=== PATIENT | male | born 1970 | race Caucasian/White ===

== ENCOUNTER 2019-01-07 16:43 | Emergency (ER) | payer SELFPAY ==
[~2019-01-07] VITALS: Ht 198.1 cm; Wt 136.1 kg
--- NOTE | 2019-01-07 17:47 | RAD ---
CT head and cervical spine without contrast History: Syncope, head injury, loss of consciousness Technique: Noncontrast CT imaging was performed of the head and cervical spine. Multiplanar reconstruction images are submitted. Exposure: One or more of the following individualized dose reduction techniques were utilized for this examination: 1. Automated exposure control 2. Adjustment of the mA and/or kV according to patient size 3. Use of iterative reconstruction technique. Head CT Comparison: None Findings: No acute extra-axial or parenchymal hemorrhage is identified. There is no significant intra-axial mass effect, midline shift, or extra-axial fluid collection. The shay-white differentiation of the major vascular territories is preserved. The ventricles, sulci, and cisterns are within normal limits in size and configuration. Mastoid air cells are aerated. There is patchy mild bilateral ethmoid air cell mucosal thickening. There is mucous retention cyst of the inferior left maxillary sinus. There is no significant focal calvarial abnormality. There is bilateral proptosis. Impression: 1. No acute intracranial abnormality is identified. 2. There is bilateral proptosis. Cervical spine CT Comparison: None Findings: No acute cervical spine fracture is identified. Vertebral body stature is overall maintained. There is very mild grade 1 anterior spondylolisthesis C4-5. There is mild to moderate degenerative disc disease C5-6, minimally at C4-5 and C6-7. There is mild spondylosis greatest C5-6. There is probable borderline central canal stenosis C4-5 through C6-7. Atlanto-axial distance is within normal limits. There is appropriate alignment of lateral masses of C1 relative to C2. Occipital condylar-C1 relationship is maintained. There is mild reversal of the lordotic curvature centered near C3-4. There is multilevel facet degenerative change. There is a larger osteophyte along the anterior right facet articulation at C3-C4 contributing to moderate narrowing of the right neural foramen. There is mild narrowing of the right C5-6 neural foramen. Impression: 1. No acute cervical spine fracture is identified. 2. Larger facet osteophyte at C3-4 results in moderate narrowing of the right neural foramen. 3. There is degenerative disc disease greatest at C5-6 and to lesser degree at C4-5 and C6-7 with spondylosis at the same levels. Electronically signed by: Mukul Hernandez MD (01/07/2019 5:44 PM) [facility]
[2019-01-07 17:50] LABS: BASO % 1 % (0-3); EOS # 0.3 x10^3/uL (0.0-0.7); EOS % 6 % (0-3); HEMATOCRIT 46.9 % (39.0-53.0); LYMPH # 0.9 x10^3/uL (1.0-4.8); LYMPH % 21 % (24-48); MEAN CORPUSCULAR HEMOGLOBIN 32 pg (25-35); MEAN CORPUSCULAR HGB CONC 34 g/dL (31-37); MEAN CORPUSCULAR VOLUME 95 fL (79-100); MONO # 0.8 x10^3/uL (0.0-1.1); MONO % 18 % (0-9); NEUT # 2.3 x10^3uL (1.8-7.7); NEUT % 53 % (31-73); PLATELET COUNT 158 x10^3/uL (140-400); RED BLOOD COUNT 4.95 x10^6/uL (4.30-5.70); RED CELL DISTRIBUTION WIDTH 12.9 % (11.5-14.5); WHITE BLOOD COUNT 4.2 x10^3/uL (4.0-11.0)
--- NOTE | 2019-01-07 18:02 | RAD ---
AP chest radiograph 01/07/2019 CLINICAL HISTORY: Cough and congestion. Two AP digital radiographs of the chest were obtained. No previous studies are available for comparison. The cardiac and mediastinal silhouettes are within normal limits in size and configuration. No acute pulmonary infiltrate is seen. No pleural effusion or pneumothorax is noted. Degenerative changes are seen involving the thoracic spine. IMPRESSION: No acute abnormality is seen. Electronically signed by: Markus Ritchie MD (01/07/2019 5:59 PM) [facility]
[2019-01-07 18:08] LABS: ALBUMIN 3.7 g/dL (3.4-5.0); ALBUMIN/GLOBULIN RATIO 1.2 (1.0-1.7); CALCIUM 8.9 mg/dL (8.5-10.1); GFR 79.1; POTASSIUM 4.2 mmol/L (3.5-5.1); TOTAL BILIRUBIN 0.5 mg/dL (0.2-1.0); TOTAL PROTEIN 6.8 g/dL (6.4-8.2)
--- NOTE | 2019-01-07 18:16 | PHYS DOC ---
Past History Past Medical History: Other (back pain, PTSD, anxiety, depression and) (ALYSA AGUILAR MD) Smoking: Cigarettes Alcohol Use: None Drug Use: None (ALYSA AGUILAR MD) Adult General Chief Complaint Chief Complaint: MECHANICAL FALL HPI HPI 48-year-old male presents to the emergency Department after syncopal episode. Patient describes shortness of breath, cough, congestion �2 days. Denies any nausea, vomiting, chest pain. Unknown amount of time patient was unconscious, unknown if he hit his head. Reportedly approximately 10 seconds. EMS was called and patient was transported to the emergency department. He does describe some dizziness. (ALYSA AGUILAR MD) Review of Systems Review of Systems Constitutional: Denies fever or chills [] Eyes: Denies change in visual acuity, redness, or eye pain [] HENT: Congestion Respiratory: Cough, shortness of breath. Cardiovascular: No additional information not addressed in HPI [] GI: Denies abdominal pain, nausea, vomiting, bloody stools or diarrhea [] Musculoskeletal: Chronic pain Neurologic: Denies headache, focal weakness or sensory changes [] All other systems were reviewed and found to be within normal limits, except as documented in this note. (ALYSA AGUILAR MD) Physical Exam Physical Exam Constitutional: Well developed, well nourished, no acute distress, non-toxic appearance. [] HENT: Normocephalic, atraumatic, bilateral external ears normal, oropharynx moist, no oral exudates, nose normal. [] Eyes: PERRLA, EOMI, conjunctiva normal, no discharge. [] Neck: Normal range of motion, no tenderness, supple, no stridor. [] Cardiovascular:Heart rate regular rhythm, no murmur [] Lungs & Thorax: Decreased breath sounds Abdomen: Bowel sounds normal, soft, no tenderness, no masses, no pulsatile masses. [] Skin: Warm, dry, no erythema, no rash. [] Extremities: No tenderness, no cyanosis, no clubbing, ROM intact, no edema. [] Neurologic: Alert and oriented X 3, no focal deficits noted. [] Psychologic: Affect normal, judgement normal, mood normal. [] (ALYSA AGUILAR MD) Current Patient Data Vital Signs Temperature (Fahrenheit): * 98.0 degrees F (97.6-99.5) Patient Temperature * 98.0 degrees F (97.5-99.5) Temperature Source * Oral Blood Pressure Systolic * 144 mm Hg (100-140) H Blood Pressure Diastolic * 90 mm Hg (60-100) Blood Pressure Mean * 108 mm Hg Blood Pressure Location * Right Arm Blood Pressure Source * Automatic Cuff Pulse Rate * 73 beats per minute (60-90) Pulse Assessment Method * Monitor Respiratory Rate * 18 breaths per minute (12-24) Oxygen Delivery Method * Room Air Bedside Pulse Oximetry * 94 % Lab Results Laboratory Tests Test 01/07/19 17:35 White Blood Count 4.2 x10^3/uL (4.0-11.0) Red Blood Count 4.95 x10^6/uL (4.30-5.70) Hemoglobin 16.0 g/dL (13.0-17.5) Hematocrit 46.9 % (39.0-53.0) Mean Corpuscular Volume 95 fL (79-100) Mean Corpuscular Hemoglobin 32 pg (25-35) Mean Corpuscular Hemoglobin Concent 34 g/dL (31-37) Red Cell Distribution Width 12.9 % (11.5-14.5) Platelet Count 158 x10^3/uL (140-400) Neutrophils (%) (Auto) 53 % (31-73) Lymphocytes (%) (Auto) 21 % (24-48) L Monocytes (%) (Auto) 18 % (0-9) H Eosinophils (%) (Auto) 6 % (0-3) H Basophils (%) (Auto) 1 % (0-3) Neutrophils # (Auto) 2.3 x10^3uL (1.8-7.7) Lymphocytes # (Auto) 0.9 x10^3/uL (1.0-4.8) L Monocytes # (Auto) 0.8 x10^3/uL (0.0-1.1) Eosinophils # (Auto) 0.3 x10^3/uL (0.0-0.7) Basophils # (Auto) 0.0 x10^3/uL (0.0-0.2) D-Dimer (Lauren) 0.54 mg/L (0.00-0.50) H Sodium Level 141 mmol/L (136-145) Potassium Level 4.2 mmol/L (3.5-5.1) Chloride Level 106 mmol/L (98-107) Carbon Dioxide Level 29 mmol/L (21-32) Anion Gap 6 (6-14) Blood Urea Nitrogen 11 mg/dL (8-26) Creatinine 1.0 mg/dL (0.7-1.3) Estimated GFR (Cockcroft-Gault) 79.1 BUN/Creatinine Ratio 11 (6-20) Glucose Level 107 mg/dL (70-99) H Calcium Level 8.9 mg/dL (8.5-10.1) Total Bilirubin 0.5 mg/dL (0.2-1.0) Aspartate Amino Transferase (AST) 26 U/L (15-37) Alanine Aminotransferase (ALT) 51 U/L (16-63) Alkaline Phosphatase 78 U/L (46-116) Total Protein 6.8 g/dL (6.4-8.2) Albumin 3.7 g/dL (3.4-5.0) Albumin/Globulin Ratio 1.2 (1.0-1.7) (ALYSA AGUILAR MD) Lab Results Laboratory Tests Test 01/07/19 17:35 White Blood Count 4.2 x10^3/uL Red Blood Count 4.95 x10^6/uL Hemoglobin 16.0 g/dL Hematocrit 46.9 % Mean Corpuscular Volume 95 fL Mean Corpuscular Hemoglobin 32 pg Mean Corpuscular Hemoglobin Concent 34 g/dL Red Cell Distribution Width 12.9 % Platelet Count 158 x10^3/uL Neutrophils (%) (Auto) 53 % Lymphocytes (%) (Auto) 21 % Monocytes (%) (Auto) 18 % Eosinophils (%) (Auto) 6 % Basophils (%) (Auto) 1 % Neutrophils # (Auto) 2.3 x10^3uL Lymphocytes # (Auto) 0.9 x10^3/uL Monocytes # (Auto) 0.8 x10^3/uL Eosinophils # (Auto) 0.3 x10^3/uL Basophils # (Auto) 0.0 x10^3/uL D-Dimer (Lauren) 0.54 mg/L Sodium Level 141 mmol/L Potassium Level 4.2 mmol/L Chloride Level 106 mmol/L Carbon Dioxide Level 29 mmol/L Anion Gap 6 Blood Urea Nitrogen 11 mg/dL Creatinine 1.0 mg/dL Estimated GFR (Cockcroft-Gault) 79.1 BUN/Creatinine Ratio 11 Glucose Level 107 mg/dL Calcium Level 8.9 mg/dL Total Bilirubin 0.5 mg/dL Aspartate Amino Transf (AST/SGOT) 26 U/L Alanine Aminotransferase (ALT/SGPT) 51 U/L Alkaline Phosphatase 78 U/L Troponin I Quantitative < 0.017 ng/mL Total Protein 6.8 g/dL Albumin 3.7 g/dL Albumin/Globulin Ratio 1.2 Current Medications Medications (Trade) Dose Ordered Sig/Sakina Route PRN Reason Start Time Stop Time Status Last Admin Dose Admin Iohexol (Omnipaque 350 Mg/ml) 100 ml 1X ONCE IV 01/07/19 19:00 01/07/19 19:01 DC 01/07/19 19:02 (DORIS CANCHOLA MD) EKG EKG [] (ALYSA AGUILAR MD) EKG Normal sinus rhythm with a normal rate, normal axis, normal intervals, there are no acute ischemic ST/T changes. (DORIS CANCHOLA MD) Radiology/Procedures Radiology/[place] [address] IMAGING REPORT Signed PATIENT: HERSON ALFREDO ACCOUNT: [id number] : 1970 LOCATION: ER AGE: 48 SEX: M EXAM STATUS: PRE ER ORD. PHYSICIAN: ALYSA AGUILAR MD REASON: syncope, head injury, LOC PROCEDURE: CT HEAD AND CERVICAL SPINE WO CT head and cervical spine without contrast History: Syncope, head injury, loss of consciousness Technique: Noncontrast CT imaging was performed of the head and cervical spine. Multiplanar reconstruction images are submitted. Exposure: One or more of the following individualized dose reduction techniques were utilized for this examination: 1. Automated exposure control 2. Adjustment of the mA and/or kV according to patient size 3. Use of iterative reconstruction technique. Head CT Comparison: None Findings: No acute extra-axial or parenchymal hemorrhage is identified. There is no significant intra-axial mass effect, midline shift, or extra-axial fluid collection. The shay-white differentiation of the major vascular territories is preserved. The ventricles, sulci, and cisterns are within normal limits in size and configuration. Mastoid air cells are aerated. There is patchy mild bilateral ethmoid air cell mucosal thickening. There is mucous retention cyst of the inferior left maxillary sinus. There is no significant focal calvarial abnormality. There is bilateral proptosis. Impression: 1. No acute intracranial abnormality is identified. 2. There is bilateral proptosis. Cervical spine CT Comparison: None Findings: No acute cervical spine fracture is identified. Vertebral body stature is overall maintained. There is very mild grade 1 anterior spondylolisthesis C4-5. There is mild to moderate degenerative disc disease C5-6, minimally at C4-5 and C6-7. There is mild spondylosis greatest C5-6. There is probable borderline central canal stenosis C4-5 through C6-7. Atlanto-axial distance is within normal limits. There is appropriate alignment of lateral masses of C1 relative to C2. Occipital condylar-C1 relationship is maintained. There is mild reversal of the lordotic curvature centered near C3-4. There is multilevel facet degenerative change. There is a larger osteophyte along the anterior right facet articulation at C3-C4 contributing to moderate narrowing of the right neural foramen. There is mild narrowing of the right C5-6 neural foramen. Impression: 1. No acute cervical spine fracture is identified. 2. Larger facet osteophyte at C3-4 results in moderate narrowing of the right neural foramen. 3. There is degenerative disc disease greatest at C5-6 and to lesser degree at C4-5 and C6-7 with spondylosis at the same levels. Electronically signed by: Josee Powers MD (01/07/2019 5:44 PM) [facility] DICTATED AND SIGNED BY: JOSEE POWERS MD DATE: 01/07/19 1741 CC: ALYSA AGUILAR MD ~ [address] [address] IMAGING REPORT Signed PATIENT: HERSON ALFREDO ACCOUNT: [id number] : 1970 LOCATION: ER AGE: 48 SEX: M EXAM STATUS: PRE ER ORD. PHYSICIAN: ALYSA AGUILAR MD REASON: cough/congestion PROCEDURE: CHEST AP ONLY AP chest radiograph 01/07/2019 CLINICAL HISTORY: Cough and congestion. Two AP digital radiographs of the chest were obtained. No previous studies are available for comparison. The cardiac and mediastinal silhouettes are within normal limits in size and configuration. No acute pulmonary infiltrate is seen. No pleural effusion or pneumothorax is noted. Degenerative changes are seen involving the thoracic spine. IMPRESSION: No acute abnormality is seen. Electronically signed by: Gema Ritchie MD (01/07/2019 5:59 PM) [facility] DICTATED AND SIGNED BY: GEMA RITCHIE MD DATE: 01/07/19 3970 CC: ALYSA AGUILAR MD ~ (ALYSA AGUILAR MD) Radiology/Procedures PROCEDURE: CT ANGIOGRAPHY CHEST CTA scan of the Chest with Contrast (Pulmonary Embolism protocol) 01/07/2019 Clinical History: Syncope. Elevated d-dimer. Technique: After the intravenous administration of 100 cc of Omnipaque 350, contiguous, 0.625 mm axial sections were obtained through the chest. 2 mm axial and 3D MIP coronal and sagittal reconstructed images were obtained. One or more of the following individualized dose reduction techniques were utilized for this study: 1. Automated exposure control. 2. Adjustment of the mA and/or kV according to patient size. 3. Use of iterative reconstruction technique. Findings: Comparison is made to an AP chest radiograph performed earlier today. No filling defect is seen within the major branches of either pulmonary artery. There is no CT evidence of pulmonary embolism. The heart is borderline enlarged. The thoracic aorta is tortuous but tapers normally. Enlarged hilar and mediastinal lymph nodes are seen. These measure 1 to 3.1 cm in size.. Minimal dependent subsegmental atelectasis is seen involving both lungs. No area of consolidation, pleural effusion or pneumothorax is seen. Images through the upper abdomen demonstrate decreased attenuation of the liver parenchyma consistent with fatty infiltration. Degenerative changes are seen involving the thoracic spine. Impression: There is no CT evidence of pulmonary embolism. (DORIS CANCHOLA MD) Course & Med Decision Making Course & Med Decision Making Pertinent Labs and Imaging studies reviewed. (See chart for details) []48-year-old male presents to the emergency Department after syncopal episode. Patient describes shortness of breath, cough, congestion �2 days. Denies any nausea, vomiting, chest pain. Unknown amount of time patient was unconscious, unknown if he hit his head. Reportedly approximately 10 seconds. EMS was called and patient was transported to the emergency department. He does describe some dizziness. Labs/Imaging reviewed. CXR without acute process. Ddimer mildly elevated, given syncope and SOB, plan for CTA. If negative, will plan for dc and rx for bronchitis given continued coug/congestion. CTA pending - discussed with Dr. Canchola. If CTA negative will plan discharge. (ALYSA AGUILAR MD) Course & Med Decision Making 8:00 PM: Patient presented to the emergency department after syncopal episode, at his [place]. He denies any pain at this time. He has had some nasal congestion and a nonproductive cough, but is not short of breath at this time. He is ambulatory in the emergency department with a stable gait. His EKG, lab, and numerous imaging tests are all unremarkable. I discussed the uncertain etiology of this syncopal episode and we discussed overnight observation in the hospital, but the patient feels well and would like to go home. I discussed importance of close follow-up and return precautions in detail. (DORIS CANCHOLA MD) Dragon Disclaimer Dragon Disclaimer This electronic medical record was generated, in whole or in part, using a voice recognition dictation system. (ALYSA AGUILAR MD) Departure Departure: Impression: Primary Impression: Syncope and collapse Disposition: HOME, SELF-CARE Condition: STABLE Patient Instructions: Syncope, [id number] Additional Instructions: Tylenol/Motrin as needed Doxycycline for congestion/cough Imaging reviewed, no evidence of head bleed or neck fracture Scripts Doxycycline Monohydrate (DOXYCYCLINE MONOHYDRATE) 100 Mg Capsule 1 CAP PO BID for sinus infection, #14 CAP Prov: ALYSA AGUILAR MD 01/07/19 ALYSA AGUILAR MD Jan 07, 2019 18:16 DORIS CANCHOLA MD Jan 07, 2019 19:20
[2019-01-07] MEDS ORDERED: DOXY100C14 PO (18:25)
[2019-01-07] MEDS ORDERED: IOHEXOL 350 MG/ML 100 ML VIAL. IV ONE (19:00)
--- NOTE | 2019-01-07 19:39 | RAD ---
CTA scan of the Chest with Contrast (Pulmonary Embolism protocol) 01/07/2019 Clinical History: Syncope. Elevated d-dimer. Technique: After the intravenous administration of 100 cc of Omnipaque 350, contiguous, 0.625 mm axial sections were obtained through the chest. 2 mm axial and 3D MIP coronal and sagittal reconstructed images were obtained. One or more of the following individualized dose reduction techniques were utilized for this study: 1. Automated exposure control. 2. Adjustment of the mA and/or kV according to patient size. 3. Use of iterative reconstruction technique. Findings: Comparison is made to an AP chest radiograph performed earlier today. No filling defect is seen within the major branches of either pulmonary artery. There is no CT evidence of pulmonary embolism. The heart is borderline enlarged. The thoracic aorta is tortuous but tapers normally. Enlarged hilar and mediastinal lymph nodes are seen. These measure 1 to 3.1 cm in size.. Minimal dependent subsegmental atelectasis is seen involving both lungs. No area of consolidation, pleural effusion or pneumothorax is seen. Images through the upper abdomen demonstrate decreased attenuation of the liver parenchyma consistent with fatty infiltration. Degenerative changes are seen involving the thoracic spine. Impression: There is no CT evidence of pulmonary embolism. Electronically signed by: Markus Ritchie MD (01/07/2019 7:36 PM) [facility]
[2019-01-07 20:09] VITALS: BP 158/92
--- NOTE | 2019-01-08 12:44 | EKG ---
[address] [address] Test Date: 2019-01-07 Test Time: 19:58:34 Pat Name: HERSON ALFREDO Department: Room: Gender: M Volunteer Services Assistant: : 1970 Requested By: DORIS NOLEN Order Number: [id number] Reading MD: Measurements Intervals [place] Rate: 62 P: 45 [place]: 158 QRS: 23 QRSD: 102 T: 26 QT: 418 QTc: 427 Interpretive Statements SINUS RHYTHM QRS(T) CONTOUR ABNORMALITY CONSIDER ANTEROSEPTAL MYOCARDIAL DAMAGE POSSIBLY ABNORMAL ECG RI6.01 No previous ECG available for comparison
== END 2019-01-07 20:12 | disposition home or self-care (01) ==
LOC: ER 16:43
DX: R55 Syncope and collapse (principal); F43.10 Post-traumatic stress disorder, unspecified; F41.9 Anxiety disorder, unspecified; F32.9 Major depressive disorder, single episode, unspecified; F17.210 Nicotine dependence, cigarettes, uncomplicated
CPT/HCPCS: 36415; 70450; 71045; 71275; 72125; 80053; 84484; 85025; 85379; 93005; 99285; Q9967

== ENCOUNTER → 2019-05-27 | Outpatient (CLI) | payer OTHER ==
[~2019-05-27] MED LIST: DOXY100C14 PO; METH500T7 PO; METO50TA6 PO; OMEP40CA45 PO; PRAZ1CAP2 PO; PREG150C PO; TRAZ300T2 PO; VENL150C PO
[2019-05-27 09:30] VITALS: BP 142/79
== END | disposition home or self-care (01) ==
LOC: SURG 09:21
PROVIDERS: ATTEND Anesthesiology Pain Medicine
DX: M47.26 Other spondylosis with radiculopathy, lumbar region (principal); I10 Essential (primary) hypertension; M79.2 Neuralgia and neuritis, unspecified
CPT/HCPCS: 99213